=== PATIENT | male | born 1935 | race Caucasian/White ===

== ENCOUNTER 2016-06-19 07:44 | Inpatient (IN) | payer MEDICAID ==
[~2016-06-19] VITALS: Ht 165.1 cm; Wt 62.8 kg
[2016-06-19 08:30] LABS: BASOPHIL % 0.8 % (0-2); PLATELET COUNT 192 x10^3mcL (130-400)
[2016-06-19 08:32] LABS: CALCIUM 8.3 mg/dL (8.5-10.1); CARBON DIOXIDE 25.9 mmol/L (21-32); CHLORIDE SERUM 100 mmol/L (98-107); CREATININE SERUM 1.3 mg/dL (0.7-1.3); GLUCOSE SERUM 110 mg/dL (74-106); SODIUM SERUM 137 mmol/L (136-145)
[2016-06-19 08:37] LABS: ALBUMIN 3.6 g/dL (3.4-5.0); ALKALINE PHOSPHATASE 41 U/L (46-116); ALT/SGPT 23 U/L (16-63); AST/SGOT 24 U/L (15-37); BILIRUBIN TOTAL 0.6 mg/dL (0.20-1.00); TOTAL PROTEIN, SERUM 7.3 g/dL (6.4-8.2)
[2016-06-19 08:48] LABS: RED CELL DISTRIBUTION WIDTH 14.6 % (11.5-14.5)
[2016-06-19] MEDS ORDERED: PROMETH-CODEIN 65 ML PO (10:21)
[2016-06-19] MEDS ORDERED: LISINOPRIL HCTZ1 TA1 PO (10:23)
[2016-06-19] MEDS ORDERED: ZITHROMAX250 MG PO (10:24)
[2016-06-19] MEDS ORDERED: NOR10 PO (10:24)
[2016-06-19] MEDS ORDERED: IBUPROFEN400 MG PO (10:24)
[2016-06-19 11:07] LABS: T3 TOTAL 1.39 ng/mL
[2016-06-19 11:08] LABS: MAGNESIUM 1.8 mg/dL (1.8-2.4); PHOSPHOROUS 3.4 mg/dL (2.5-4.9)
[2016-06-19 11:09] LABS: CHOLESTEROL/HDL RATIO 3.6
[2016-06-19 11:17] LABS: FREE T4 1.32 ng/dL (0.76-1.46); FREE THYROXINE INDEX 3.2 ug/dL (1.4-4.5); T4(THYROXINE) 9.5 ug/dL (4.7-13.3)
[2016-06-19 11:30] VITALS: BP 118/70
[2016-06-19 13:03] VITALS: BP 98/65
[2016-06-19 18:33] VITALS: BP 100/62
[2016-06-19 21:31] VITALS: BP 112/63
[2016-06-20 05:52] VITALS: BP 94/57
[2016-06-20 08:30] VITALS: BP 104/65
[2016-06-20 10:56] LABS: microscopic required? NO
[2016-06-20 11:13] LABS: UA SPECIFIC GRAVITY 1.015 (1.005-1.035); urine erythrocyte NEGATIVE (NEGATIVE)
[2016-06-20 11:19] LABS: BASOPHIL % 0.4 % (0-2); PLATELET COUNT 193 x10^3mcL (130-400)
[2016-06-20 11:41] LABS: RED CELL DISTRIBUTION WIDTH 15.4 % (11.5-14.5)
[2016-06-20 11:43] LABS: ALKALINE PHOSPHATASE 34 U/L (46-116); ALT/SGPT 23 U/L (16-63); AST/SGOT 23 U/L (15-37); BILIRUBIN TOTAL 0.53 mg/dL (0.20-1.00); CALCIUM 7.9 mg/dL (8.5-10.1); CHLORIDE SERUM 110 mmol/L (98-107); GLUCOSE SERUM 100 mg/dL (74-106); POTASSIUM SERUM 4.3 mmol/L (3.5-5.1); SODIUM SERUM 144 mmol/L (136-145); TOTAL PROTEIN, SERUM 6.2 g/dL (6.4-8.2)
[2016-06-20 11:46] LABS: ALBUMIN 3.1 g/dL (3.4-5.0)
[2016-06-20 12:47] VITALS: BP 109/64
[2016-06-20 17:16] VITALS: BP 123/71
[2016-06-20 22:30] VITALS: BP 133/79
[2016-06-21 06:17] LABS: BASOPHIL % 0.8 % (0-2); PLATELET COUNT 188 x10^3mcL (130-400)
[2016-06-21 06:32] VITALS: BP 114/71
[2016-06-21 06:39] LABS: CALCIUM 7.8 mg/dL (8.5-10.1); CARBON DIOXIDE 26.5 mmol/L (21-32); CHLORIDE SERUM 107 mmol/L (98-107); GLUCOSE SERUM 89 mg/dL (74-106); MAGNESIUM 1.7 mg/dL (1.8-2.4); PHOSPHOROUS 2.9 mg/dL (2.5-4.9); SODIUM SERUM 142 mmol/L (136-145)
[2016-06-21 06:57] LABS: RED CELL DISTRIBUTION WIDTH 15.3 % (11.5-14.5)
[2016-06-21 09:50] VITALS: BP 118/77
[2016-06-21 10:52] VITALS: BP 118/77
== END 2016-06-21 13:00 | disposition home or self-care (01) | DRG 203 ==
LOC: ED 07:44 → DU 09:56
PROVIDERS: Emergency Medicine; Family Medicine; ADMIT Family Medicine
DX: M94.0 Chondrocostal junction syndrome [Tietze] (principal); E44.0 Moderate protein-calorie malnutrition; D68.69 Other thrombophilia; E11.65 Type 2 diabetes mellitus with hyperglycemia; K52.9 Noninfective gastroenteritis and colitis, unspecified; I10 Essential (primary) hypertension; Z68.23 Body mass index [BMI] 23.0-23.9, adult
CPT/HCPCS: 82962; 83880; 84439; 87046; 87046-59; C9113; J1885; J3480; J7030; Q0092

== ENCOUNTER 2016-11-18 11:25 | Emergency (ER) | payer MEDICAID ==
[~2016-11-18 11:25] MED LIST: IBUPROFEN400 MG PO; LISINOPRIL HCTZ1 TA1 PO; NOR10 PO; PROMETH-CODEIN 65 ML PO; ZITHROMAX250 MG PO
[2016-11-18 12:31] VITALS: BP 116/70
== END 2016-11-18 12:31 | disposition home or self-care (01) ==
LOC: ED 11:25
DX: J06.9 Acute upper respiratory infection, unspecified (principal); I10 Essential (primary) hypertension; Z79.899 Other long term (current) drug therapy